=== PATIENT | male | born 1990 | race African-American/Black ===

== ENCOUNTER 2016-12-30 15:39 | Emergency (ER) | payer SELFPAY ==
[~2016-12-30] VITALS: Ht 172.7 cm; Wt 78.9 kg
[2016-12-30 16:14] VITALS: BP 130/84
[2016-12-30] MEDS ORDERED: AZITHROMYCIN 250 MG TABLET. PO ONE (16:15)
[2016-12-30] MEDS ORDERED: metroNIDAZOLE 500 MG TABLET PO ONE (16:15)
[2016-12-30] MEDS ORDERED: cefTRIAXone IM 250 MG VIAL IM ONE (16:15)
[2016-12-30 16:19] LABS: BILIRUBIN,URINE SMALL (NEG); GLUCOSE,URINE NEGATIVE (NEG); NITRITE,URINE NEGATIVE (NEG); PROTEIN,URINE 30 mg/dL (NEG-TRACE); UROBILINOGEN,URINE 0.2 mg/dL (0.2 mg/dL)
[2016-12-30] MEDS ORDERED: DOXY100C2 PO (16:23)
--- NOTE | 2016-12-30 16:23 | PHYS DOC ---
Adult General Chief Complaint Chief Complaint: SEXUALLY TRANSMITTED DISEASE HPI HPI Patient is a 26 year old male presents to the ED complaining dysuria x 1 week. Describes pain as burning. Rates pain as 8/10. States he has multiple sexual partners and could have been exposed to an STD. States he told them he has symptoms. Came today for treatment. Associated symptoms include penile discharge. Denies fever, abdominal pain, nausea/vomiting, dizziness, chest pain or shortness of breath. Review of Systems Review of Systems Constitutional: Denies fever or chills [] Eyes: Denies change in visual acuity, redness, or eye pain [] HENT: Denies nasal congestion or sore throat [] Respiratory: Denies cough or shortness of breath [] Cardiovascular: No additional information not addressed in HPI [] GI: Denies abdominal pain, nausea, vomiting, bloody stools or diarrhea [] : Complains of dysuria. Denies hematuria [] Musculoskeletal: Denies back pain or joint pain [] Integument: Denies rash or skin lesions [] Neurologic: Denies headache, focal weakness or sensory changes [] Endocrine: Denies polyuria or polydipsia [] Current Medications Current Medications Current Medications Medications (Trade) Dose Ordered Sig/Amrik Start Time Stop Time Status Last Admin Dose Admin Azithromycin (Zithromax) 1,000 mg 1X ONCE 12/30/16 16:15 12/30/16 16:18 DC 12/30/16 16:40 1,000 MG Ceftriaxone Sodium (Rocephin Im) 250 mg 1X ONCE 12/30/16 16:15 12/30/16 16:18 DC 12/30/16 16:40 250 MG Lidocaine HCl (Xylocaine-Mpf 1% Vial) 2 ml 1X ONCE 12/30/16 16:45 12/30/16 16:46 DC 12/30/16 16:40 2 ML Metronidazole (Flagyl) 2,000 mg 1X ONCE 12/30/16 16:15 12/30/16 16:18 DC 12/30/16 16:40 2,000 MG Allergies Allergies Allergies Coded Allergies Type Severity Reaction Last Updated Verified No Known Drug Allergies 12/30/16 No Physical Exam Physical Exam Constitutional: Well developed, well nourished, no acute distress, non-toxic appearance. [] HENT: Normocephalic, atraumatic, bilateral external ears normal, oropharynx moist, no oral exudates, nose normal. [] Eyes: PERRLA, EOMI, conjunctiva normal, no discharge. [] Neck: Normal range of motion, no tenderness, supple, no stridor. [] Cardiovascular:Heart rate regular rhythm, no murmur [] Lungs & Thorax: Bilateral breath sounds clear to auscultation [] Abdomen: Bowel sounds normal, soft, no tenderness, no masses, no pulsatile masses. [] REFUSED EXAM. Skin: Warm, dry, no erythema, no rash. [] Back: No tenderness, no CVA tenderness. [] Extremities: No tenderness, no cyanosis, no clubbing, ROM intact, no edema. [] Neurologic: Alert and oriented X 3, normal motor function, normal sensory function, no focal deficits noted. [] Psychologic: Affect normal, judgement normal, mood normal. [] Current Patient Data Vital Signs Vital Signs Date Time Temp Pulse Resp B/P (MAP) Pulse Ox O2 Delivery O2 Flow Rate FiO2 12/30/16 16:14 99.2 96 16 99 Room Air 99.2 Lab Values Laboratory Tests Test 12/30/16 16:06 Urine Collection Type Void Urine Color Dk yellow Urine Clarity Cloudy Urine pH 6.0 Urine Specific Whitt 1.020 Urine Protein 30 mg/dL (NEG-TRACE) Urine Glucose (UA) Negative mg/dL (NEG) Urine Ketones (Stick) 40 mg/dL (NEG) Urine Blood Small (NEG) Urine Nitrite Negative (NEG) Urine Bilirubin Small (NEG) Urine Urobilinogen Dipstick 0.2 mg/dL (0.2 mg/dL) Urine Leukocyte Esterase Large (NEG) Urine RBC Occ /HPF (0-2) Urine WBC >40 /HPF (0-4) Urine Squamous Epithelial Cells Occ /LPF Urine Bacteria Few /HPF (0-FEW) Urine Hyaline Casts Few /HPF Urine Mucus Marked /LPF EKG EKG [] Radiology/Procedures Radiology/Procedures [] Course & Med Decision Making Course & Med Decision Making Pertinent Labs and Imaging studies reviewed. (See chart for details) []Will treat for STD exposure and symptoms. Patient given Rocephin, Flagyl and azithromycin. Will discharge outpatient with doxycycline. Discussed safe sex practice. Discussed follow-up STD testing [facility]. Discussed alerting partners. Discussed reasons to return to the ED. Patient understands and agrees with plan. Dragon Disclaimer Dragon Disclaimer This electronic medical record was generated, in whole or in part, using a voice recognition dictation system. Departure Departure Impression: Primary Impression: STD exposure Additional Impression: Dysuria Disposition: HOME, SELF-CARE Condition: STABLE Referrals: NON,STAFF (PCP) NIKHIL BLAIR MD Patient Instructions: Sexually Transmitted Disease Scripts Doxycycline Hyclate (DOXYCYCLINE HYCLATE) 100 Mg Capsule 1 CAP PO BID, #20 CAP Prov: BLANCA LIMON 12/30/16 Problem Qualifiers BLANCA LIMON Dec 30, 2016 16:23
[2016-12-30 16:25] LABS: BACTERIA,URINE FEW /HPF (0-FEW); RBC,URINE OCC /HPF (0-2); SQUAMOUS EPITHELIAL CELL,UR OCC /LPF; WBC,URINE >40 /HPF (0-4)
[2016-12-30] MEDS ORDERED: LIDOCAINE 1% PF 2 ML VIAL. INJ ONE (16:45)
== END 2016-12-30 17:00 | disposition home or self-care (01) ==
LOC: ER 15:39
DX: Z20.2 Contact with and (suspected) exposure to infections with a predominantly sexual mode of transmission (principal); R30.0 Dysuria; R36.9 Urethral discharge, unspecified
CPT/HCPCS: 81001; 87086; 87491; 87591; 96372; 99284; J0696; Q0144